=== PATIENT | male | born 1980 | race African-American/Black ===

== ENCOUNTER 2016-08-25 15:20 | Emergency (ER) | payer SELFPAY ==
[~2016-08-25] VITALS: Ht 177.8 cm; Wt 90.0 kg
[~2016-08-25 15:20] MED LIST: AMLO10TA80 PO; CINA30 PO; CLON0.5T4 PO; FOLI0.8T23 PO; HYDR100T26 PO; METO100T16 PO; QUET100T PO; RANI150C12 PO; REN800 PO; RISP3TAB13 PO; TERA2CAP4 PO
[2016-08-25 16:13] LABS: BASOPHILS % 0.4 % (0.0-2.0); EOSINOPHILS % 1.8 % (0.0-5.0); HEMATOCRIT. 27.5 % (42.0-52.0); LYMPHOCYTES % 13.2 % (20.0-50.0); MEAN CORPUSCULAR HEMOGLOBIN 29.4 pg (28.0-32.0); MEAN CORPUSCULAR VOLUME 89.5 fL (80.0-94.0); MEAN PLATELET VOLUME 7.8 fl (7.4-10.4); MONOCYTES % 11.6 % (2.0-8.0); PLATELET 184 x1000/uL (130-400); RED BLOOD CELL COUNT 3.07 mill/uL (4.7-6.1); RED CELL DISTRIBUTION WIDTH 15.9 % (11.6-14.6)
[2016-08-25 16:15] LABS: CHLORIDE 99 mEq/L (98-107)
[2016-08-25 16:18] LABS: PROTHROMBIN TIME 10.7 sec
[2016-08-25 16:21] LABS: CARBON DIOXIDE 27 mEq/L (21-32)
[2016-08-25 17:25] VITALS: BP 102/56
== END 2016-08-25 17:31 | disposition home or self-care (01) ==
LOC: ER 15:34
DX: I95.9 Hypotension, unspecified (principal); I12.0 Hypertensive chronic kidney disease with stage 5 chronic kidney disease or end stage renal disease; N18.6 End stage renal disease; Z99.2 Dependence on renal dialysis
CPT/HCPCS: 36415; 71010; 80053; 83605; 85025; 85610; 87040; 93005; 99285; Z7610